=== PATIENT | female | born 1975 | race African-American/Black ===

== ENCOUNTER 2016-10-14 10:57 | Emergency (ER) | payer SELFPAY ==
[~2016-10-14] VITALS: Ht 167.6 cm; Wt 158.8 kg
[~2016-10-14 10:57] MED LIST: ALBUTEROL SULF8.5 GM INH; BENAZEPRIL HCL10 MG ORAL; HYDROCODON-ACE1 EA15 ORAL; LABETALOL HCL100 MG ORAL; METRONIDAZOLE500 MG ORAL; NITROFURANTOIN1 GM MC; NKM; NORCO 5-325 TA1 EACH ORAL; NORVASC10 MG ORAL; PRENATAL FORMU1 EAC2 PO; UNOBMED; ZITHROMAX250 MG ORAL
[2016-10-14 11:15] VITALS: BP 178/84
--- NOTE | 2016-10-14 11:50 | Diagnostic Imaging Report ---
Indication: SOB Technique: One view of the chest Comparison: 07/31/2012 Findings: Lungs and pleural spaces are clear. Heart size is upper limits normal. Better inspiration on the current study Impression: No acute process
[2016-10-14 11:52] LABS: BASOPHILS % (AUTO) 0.7 % (0.0-2.0); EOSINOPHILS % (AUTO) 3.1 % (0.0-3.0); LYMPHOCYTES % (AUTO) 37.9 % (20.0-45.0); MEAN CORPUSCULAR HEMOGLOBIN 24.6 PG (27.0-31.0); MEAN CORPUSCULAR HGB CONC 30.3 G/DL (32.0-36.0); MEAN CORPUSCULAR VOLUME 81 FL (80-99); MEAN PLATELET VOLUME 6.8 FL (6.5-10.1); MONOCYTES % (AUTO) 5.1 % (1.0-10.0); NEUTROPHILS % (AUTO) 53.2 % (45.0-75.0); PLATELET COUNT 266 K/UL (150-450); RED BLOOD COUNT 4.82 M/UL (4.20-5.40); RED CELL DISTRIBUTION WIDTH 16.2 % (11.6-14.8); WHITE BLOOD COUNT 8.7 K/UL (4.8-10.8)
[2016-10-14 11:53] LABS: APPEARANCE,URINE SLIGHTLY CLOUDY; KETONES,URINE NEGATIVE (NEGATIVE); LEUKOCYTE ESTERASE ,URINE 3+ (NEGATIVE); NITRITE,URINE NEGATIVE (NEGATIVE); PH,URINE 6 (4.5-8.0); PROTEIN,URINE NEGATIVE (NEGATIVE); UROBILINOGEN,URINE NORMAL MG/DL (0.0-1.0)
[2016-10-14 11:59] LABS: PROTHROMBIN TIME 10.9 SEC (9.30-11.50)
[2016-10-14 12:00] VITALS: BP 175/90
[2016-10-14 12:03] LABS: ALANINE AMINOTRANSFERASE 13 U/L (3-33); ALBUMIN/GLOBULIN RATIO 0.8 (1.0-2.7); ANION GAP 9 (5-15); ASPARTATE AMINO TRANSFERASE 14 U/L (5-40); BACTERIA,URINE FEW /HPF; CALCIUM 8.6 mg/dL (8.6-10.2); CARBON DIOXIDE 31 mEQ/L (20-30); CHLORIDE 99 mEQ/L (98-107); CREATININE 0.9 mg/dL (0.5-0.9); GLOMERULAR FILTRATION RATE > 60 mL/min (>60); HEMOLYSIS 1; POTASSIUM 4.2 mEQ/L (3.4-4.9); RBC,URINE 0-2 /HPF (0 - 2); SODIUM 139 mEQ/L (135-145); SQUAMOUS EPITHELIAL CELL,UR MODERATE /LPF (NONE/OCC); TOTAL PROTEIN 7.4 g/dL (6.6-8.7); TRICHOMONAS,URINE FEW /HPF; TROPONIN I < 0.30 ng/mL (<=0.30)
[2016-10-14 12:13] LABS: CKMB 2.5 ng/mL (< 3.8)
[2016-10-14 13:00] VITALS: BP 179/94
[2016-10-14 13:30] VITALS: BP 151/92
[2016-10-14] MEDS ORDERED: Acetaminophen 500mg (ES) tab ORAL ONE (13:30)
--- NOTE | 2016-10-14 13:30 | Emergency Room Report ---
History of Present Illness General Chief Complaint: Headache Source: Patient Present Illness HPI This patient states she has had an ongoing headache for the past day. She also states that she has had lower extremity edema in both of her lower extremities. She states this has been ongoing and waxes and wanes in severity. She at one point was on a blood pressure medication and this patient was taken off of this medication because her blood pressure was normal. Otherwise, she has no medical problems and is on no medications. She denies blurry vision or double vision. She denies chest pain. She states she does occasionally have shortness of breath. She denies fever or chills. She denies vomiting. She has had some nausea. She has no other complaints. Allergies: Coded Allergies: IBUPROFEN (Verified Allergy, Severe, facial edema, 07/30/12) Uncoded Allergies: contrast dye (Allergy, Severe, syncope, 07/30/12) Patient History Past Medical History: see triage record, HTN Social History: Denies: alcohol use, drug use, smoking Last Menstrual Period: a week ago Reviewed Nursing Documentation: PMH: Agreed, PSxH: Agreed Nursing Documentation-PMH Past Medical History: No History, Except For Hx Hypertension: Yes Review of Systems All Other Systems: negative except mentioned in HPI Physical Exam Vital Signs Date Time Temp Pulse Resp B/P Pulse Ox O2 Delivery O2 Flow Rate FiO2 10/14/16 11:00 98.1 73 16 164/98 94 Room Air Sp02 EP Interpretation: reviewed, normal General Appearance: no apparent distress, alert, GCS 15, non-toxic Head: normocephalic, atraumatic Eyes: bilateral eye PERRL, bilateral eye normal inspection ENT: hearing grossly normal, normal pharynx, no angioedema, normal voice Neck: full range of motion, supple/symm/no masses Respiratory: chest non-tender, lungs clear, normal breath sounds, speaking full sentences Cardiovascular #1: regular rate, rhythm, no edema Gastrointestinal: normal bowel sounds, non tender, soft, non-distended, no guarding, no rebound Rectal: deferred Musculoskeletal: back normal, gait/station normal, normal range of motion, non- tender, swelling - 2+pitting BLE edema Neurologic: alert, oriented x3, responsive, motor strength/tone normal, sensory intact, speech normal Psychiatric: judgement/insight normal, memory normal, mood/affect normal, no suicidal/homicidal ideation Skin: normal color, no rash, warm/dry, well hydrated Medical Decision Making Diagnostic Impression: Primary Impression: Headache Additional Impressions: Hypertension Lymphedema ER Course This patient presented with hypertension. The patient is very difficult to obtain of a pressure on because of her morbid obesity. There was no extra large blood pressure cuff available. Therefore, blood pressure was taken on the patient's forearm. Pulses not accurate method of measuring blood pressure. Regardless, patient also complained of ongoing headache. This by history sounded to be like a tension headache. There are no history or physical exam findings that would make me concerned for an intracranial process. Therefore, I did not obtain a CT of the head. Patient also has lymphedema the bilateral lower extremities. This appears to be peripheral edema. There is no evidence of congestive heart failure with a normal chest x-ray and BNP. The patient's laboratory workup to include CBC, CMP and cardiac enzymes are unremarkable. Overall, this patient a very benign evaluation. I have low suspicion for acute coronary syndrome or PE at this time. I will start the patient on amlodipine and hydrochlorothiazide for blood pressure. I will also give the patient Lasix for breakthrough lymphedema. Patient was educated on electrolyte depletion and increasing her potassium intake. Patient indicated understanding. Patient was also instructed to followup closely with her primary care physician. The patient's given return precautions and followup instructions. Labs Test 10/14/16 11:05 10/14/16 11:30 White Blood Count 8.7 K/UL (4.8-10.8) Red Blood Count 4.82 M/UL (4.20-5.40) Hemoglobin 11.8 G/DL (12.0-16.0) Hematocrit 39.0 % (37.0-47.0) Mean Corpuscular Volume 81 FL (80-99) Mean Corpuscular Hemoglobin 24.6 PG (27.0-31.0) Mean Corpuscular Hemoglobin Concent 30.3 G/DL (32.0-36.0) Red Cell Distribution Width 16.2 % (11.6-14.8) Platelet Count 266 K/UL (150-450) Mean Platelet Volume 6.8 FL (6.5-10.1) Neutrophils (%) (Auto) 53.2 % (45.0-75.0) Lymphocytes (%) (Auto) 37.9 % (20.0-45.0) Monocytes (%) (Auto) 5.1 % (1.0-10.0) Eosinophils (%) (Auto) 3.1 % (0.0-3.0) Basophils (%) (Auto) 0.7 % (0.0-2.0) Prothrombin Time 10.9 SEC (9.30-11.50) Prothromb Time International Ratio 1.0 (0.9-1.1) Activated Partial Thromboplast Time 32 SEC (23-33) Urine Color Yellow Urine Appearance Slightly cloudy Urine pH 6 (4.5-8.0) Urine Specific Ernul 1.020 (1.005-1.035) Urine Protein Negative (NEGATIVE) Urine Glucose (UA) Negative (NEGATIVE) Urine Ketones Negative (NEGATIVE) Urine Occult Blood Negative (NEGATIVE) Urine Nitrite Negative (NEGATIVE) Urine Bilirubin Negative (NEGATIVE) Urine Urobilinogen Normal MG/DL (0.0-1.0) Urine Leukocyte Esterase 3+ (NEGATIVE) Urine RBC 0-2 /HPF (0 - 2) Urine WBC 5-10 /HPF (0 - 2) Urine Squamous Epithelial Cells Moderate /LPF (NONE/OCC) Urine Bacteria Few /HPF (NONE) Urine Trichomonas Few /HPF (NONE) Sodium Level 139 mEQ/L (135-145) Potassium Level 4.2 mEQ/L (3.4-4.9) Chloride Level 99 mEQ/L (98-107) Carbon Dioxide Level 31 mEQ/L (20-30) Anion Gap 9 (5-15) Blood Urea Nitrogen 9 mg/dL (7-23) Creatinine 0.9 mg/dL (0.5-0.9) Estimat Glomerular Filtration Rate > 60 mL/min (>60) Glucose Level 107 mg/dL (74-106) Calcium Level 8.6 mg/dL (8.6-10.2) Total Bilirubin 0.7 mg/dL (0.0-1.2) Aspartate Amino Transf (AST/SGOT) 14 U/L (5-40) Alanine Aminotransferase (ALT/SGPT) 13 U/L (3-33) Alkaline Phosphatase 99 U/L (35-104) Total Creatine Kinase 195 U/L (26-140) Creatine Kinase MB 2.5 ng/mL (< 3.8) Creatine Kinase MB Relative Index 1.2 Troponin I < 0.30 ng/mL (<=0.30) Pro-B-Type Natriuretic Peptide 72 pg/mL (0-125) Total Protein 7.4 g/dL (6.6-8.7) Albumin 3.4 g/dL (3.5-5.2) Globulin 4.0 g/dL Albumin/Globulin Ratio 0.8 (1.0-2.7) Urine Opiates Screen Negative (NEGATIVE) Urine Barbiturates Screen Negative (NEGATIVE) Phencyclidine (PCP) Screen Negative (NEGATIVE) Urine Amphetamines Screen Negative (NEGATIVE) Urine Benzodiazepines Screen Negative (NEGATIVE) Urine Cocaine Screen Negative (NEGATIVE) Urine Marijuana (THC) Screen Negative (NEGATIVE) EKG Diagnostic Results Rate: normal Rhythm: NSR ST Segments: no acute changes Rhythm Strip Diag. Results EP Interpretation: yes Rate: 70's Rhythm: NSR, no PVC's, no ectopy Chest X-Ray Diagnostic Results Chest X-Ray Diagnostic Results : Chest X-Ray Ordered: Yes # of Views/Limited/Complete: 1 View Indication: Shortness of Breath EP Interpretation: No Interpretation: no consolidation, no effusion, no pneumothorax, no acute cardiopulmonary disease Impression: No acute disease Last Vital Signs Date Time Temp Pulse Resp B/P Pulse Ox O2 Delivery O2 Flow Rate FiO2 10/14/16 13:00 75 18 179/94 97 Room Air 10/14/16 11:00 98.1 Status: improved Disposition: HOME, SELF-CARE Condition: Improved Referrals: NON PHYSICIAN (PCP) Patient Instructions: Tension Headache SUNSHINE STILL D.O. Oct 14, 2016 13:30
[2016-10-14] MEDS ORDERED: AMLODIPINE BESY10 MG ORAL (14:27)
[2016-10-14] MEDS ORDERED: HYDROCHLOROTHIA25 MG ORAL (14:27)
[2016-10-14] MEDS ORDERED: FUROSEMIDE20 M1 ORAL (14:27)
[2016-10-14 14:30] VITALS: BP 158/102
[2016-10-14 14:58] VITALS: BP 158/102
--- NOTE | 2016-10-16 16:29 | Cardiology Report ---
APPROVED REPORT EKG Measurement Heart [id number] Normal sinus rhythm Normal ECG
== END 2016-10-14 14:58 | disposition home or self-care (01) ==
LOC: EMR 11:15
DX: R51 Headache (principal); I10 Essential (primary) hypertension; I89.0 Lymphedema, not elsewhere classified; Z88.6 Allergy status to analgesic agent; Z91.041 Radiographic dye allergy status
CPT/HCPCS: 36415; 71010; 80053; 80300; 81003; 82550; 82553; 83880; 84484; 85025; 85610; 85730; 93005; 96374; 99284; J1940

== ENCOUNTER 2017-09-05 01:47 | Emergency (ER) | payer MEDICAID ==
[~2017-09-05] VITALS: Ht 170.2 cm; Wt 158.8 kg
[~2017-09-05 01:47] MED LIST changes: +AMLODIPINE BESY10 MG ORAL; +FUROSEMIDE20 M1 ORAL; +HYDROCHLOROTHIA25 MG ORAL
[2017-09-05] MEDS ORDERED: B-12 DOTS500 MCG PO (02:05)
--- NOTE | 2017-09-05 02:10 | Emergency Room Report ---
History of Present Illness General Chief Complaint: Dizziness Source: Patient Present Illness HPI 42yo F p/w 1 day history of intermittent SOB as well as dizziness and LH, recently stopped taking BP meds, denies numbness, tingling, weakness, slurred speech, chest pain, syncope. Allergies: Coded Allergies: IBUPROFEN (Verified Allergy, Severe, facial edema, 09/05/17) Uncoded Allergies: contrast dye (Allergy, Severe, syncope, 07/30/12) Patient History Past Medical History: see triage record Reviewed Nursing Documentation: PMH: Agreed; PSxH: Agreed Nursing Documentation-PMH Hx Hypertension: Yes Review of Systems All Other Systems: negative except mentioned in HPI Physical Exam Sp02 EP Interpretation: reviewed, normal General Appearance: no apparent distress, alert, non-toxic Head: normocephalic Eyes: bilateral eye normal inspection, bilateral eye PERRL, bilateral eye EOMI ENT: normal ENT inspection, hearing grossly normal, normal pharynx, no angioedema, normal voice, moist mucus membranes Neck: normal inspection, full range of motion, supple, supple/symm/no masses Respiratory: chest non-tender, lungs clear, normal breath sounds, chest symmetrical, palpation of chest normal Cardiovascular #1: normal peripheral pulses, regular rate, rhythm Cardiovascular #2: 2+ radial (R), 2+ radial (L), 2+ dorsalis pedis (R), 2+ dorsalis pedis (L) Gastrointestinal: normal inspection, non tender, soft, no mass, no guarding, no rebound Rectal: deferred Genitourinary: normal inspection, no CVA tenderness Musculoskeletal: back normal, gait/station normal, normal range of motion, non- tender, no calf tenderness, Nahum's Sign negative Neurologic: normal inspection, alert, oriented x3, responsive, piece work inspector III-XII nml as tested, motor strength/tone normal, sensory intact, cerebellar normal, normal gait, speech normal Psychiatric: judgement/insight normal, memory normal, mood/affect normal, no suicidal/homicidal ideation Skin: normal color, no rash, warm/dry, normal turgor Lymphatic: no adenopathy Medical Decision Making Diagnostic Impression: Primary Impression: Dizziness of unknown cause Additional Impression: Shortness of breath ER Course Patient with shortness of breath and lightheadedness, no vertigo, normal neuro exam, normal exam otherwise as well other than marked obesity EKG, labs including d-dimer and proBNP also normal Chest x-ray with no acute abnormalities Patient with no chest pain no active shortness of breath, and normal blood pressure other than slightly high diastolic, Patient will ambulate without difficulty She was given aspirin, but I do not suspect atypical acute coronary syndrome She'll be discharge, diagnosis shortness of breath with no obvious etiology, and lightheadedness without focal findings I do suspect there is some component of anxiety as well as sleep apnea, and recommend she follow up with her primary care doctor EKG Diagnostic Results EKG Time: 01:54 EP Interpretation: no st-t changes, no twi's Rate: normal Rhythm: NSR ST Segments: no acute changes ASA given to the pt in ED: Yes Rhythm Strip Diag. Results Rhythm Strip Time: 02:04 EP Interpretation: yes Rate: 89 Rhythm: NSR, no PVC's, no ectopy Chest X-Ray Diagnostic Results Chest X-Ray Diagnostic Results : Chest X-Ray Ordered: Yes # of Views/Limited/Complete: 1 View Indication: Shortness of Breath EP Interpretation: Yes Interpretation: no consolidation, no effusion, no pneumothorax, no acute cardiopulmonary disease Impression: No acute disease Electronically Signed by: Kim Steward MD Disposition: HOME, SELF-CARE Condition: Stable KIM STEWARD M.D Sep 05, 2017 02:10
[2017-09-05] MEDS ORDERED: Aspirin Baby 81mg ORAL ONE (02:15)
[2017-09-05 02:50] LABS: BASOPHILS % (AUTO) 0.6 % (0.0-2.0); EOSINOPHILS % (AUTO) 2.4 % (0.0-3.0); HEMATOCRIT 39.1 % (37.0-47.0); HEMOGLOBIN 12.2 G/DL (12.0-16.0); LYMPHOCYTES % (AUTO) 34.7 % (20.0-45.0); MEAN CORPUSCULAR VOLUME 81 FL (80-99); MONOCYTES % (AUTO) 4.7 % (1.0-10.0); NEUTROPHILS % (AUTO) 57.6 % (45.0-75.0); PLATELET COUNT 282 K/UL (150-450); RED BLOOD COUNT 4.86 M/UL (4.20-5.40); RED CELL DISTRIBUTION WIDTH 15.6 % (11.6-14.8); WHITE BLOOD COUNT 10.9 K/UL (4.8-10.8)
[2017-09-05 03:00] LABS: ANION GAP 4 mmol/L (5-15); BLOOD UREA NITROGEN 12 mg/dL (7-18); CALCIUM 8.7 MG/DL (8.5-10.1); CARBON DIOXIDE 31 MMOL/L (21-32); CHLORIDE 101 MMOL/L (98-107); CREATININE 1.1 MG/DL (0.55-1.30); POTASSIUM 3.9 MMOL/L (3.5-5.1); SODIUM 136 MMOL/L (136-145)
[2017-09-05 03:06] VITALS: BP 136/94
[2017-09-05 03:13] LABS: ALANINE AMINOTRANSFERASE 22 U/L (12-78); ALBUMIN/GLOBULIN RATIO 0.6 (1.0-2.7); ALKALINE PHOSPHATASE 103 U/L (46-116); ASPARTATE AMINO TRANSFERASE 16 U/L (15-37); BILIRUBIN,TOTAL 0.7 MG/DL (0.2-1.0)
[2017-09-05] MEDS ORDERED: MECLIZINE HCL25 MG ORAL (04:24)
[2017-09-05 04:36] VITALS: BP 136/82
[2017-09-05 04:43] VITALS: BP 136/82
--- NOTE | 2017-09-05 09:44 | Diagnostic Imaging Report ---
Indication: Shortness of breath Technique: One view of the chest Comparison: 10/14/2016 Findings: Lungs and pleural spaces are clear. Heart size is upper limits normal. No significant change Impression: No acute process
--- NOTE | 2017-09-05 14:56 | Cardiology Report ---
APPROVED REPORT EKG Measurement Heart [id number] Normal sinus rhythm Possible Left atrial enlargement Borderline ECG
== END 2017-09-05 04:43 | disposition home or self-care (01) ==
LOC: EMR 02:18
DX: R42 Dizziness and giddiness (principal); R06.02 Shortness of breath; I10 Essential (primary) hypertension; Z88.6 Allergy status to analgesic agent
CPT/HCPCS: 36415; 71045; 80053; 83880; 84484; 85025; 85379; 93005; 99283

== ENCOUNTER 2018-02-09 18:10 | Emergency (ER) | payer SELFPAY ==
[~2018-02-09] VITALS: Ht 167.6 cm; Wt 158.8 kg
[~2018-02-09 18:10] MED LIST changes: +B-12 DOTS500 MCG PO; +MECLIZINE HCL25 MG ORAL
[2018-02-09 18:28] VITALS: BP 155/91
[2018-02-09] MEDS ORDERED: Ipratropium 0.02% Inh Soln 2.5ml UD HHN ONE (18:45)
[2018-02-09] MEDS ORDERED: Albuterol ud Inhalation HHN ONE (18:45)
[2018-02-09] MEDS ORDERED: SINUS CONGESTI PO (19:32)
[2018-02-09 19:40] LABS: ANION GAP 7 mmol/L (5-15); BLOOD UREA NITROGEN 16 mg/dL (7-18); CALCIUM 8.8 MG/DL (8.5-10.1); CARBON DIOXIDE 30 MMOL/L (21-32); CHLORIDE 101 MMOL/L (98-107); CREATININE 0.9 MG/DL (0.55-1.30); POTASSIUM 4.9 MMOL/L (3.5-5.1); SODIUM 138 MMOL/L (136-145)
[2018-02-09 19:50] LABS: ALANINE AMINOTRANSFERASE 20 U/L (12-78); ALBUMIN/GLOBULIN RATIO 0.5 (1.0-2.7); ALKALINE PHOSPHATASE 121 U/L (46-116); ASPARTATE AMINO TRANSFERASE 33 U/L (15-37); BILIRUBIN,TOTAL 0.7 MG/DL (0.2-1.0)
[2018-02-09 19:54] LABS: BASOPHILS % (AUTO) 0.6 % (0.0-2.0); EOSINOPHILS % (AUTO) 3.9 % (0.0-3.0); HEMATOCRIT 42.4 % (37.0-47.0); HEMOGLOBIN 12.8 G/DL (12.0-16.0); LYMPHOCYTES % (AUTO) 37.4 % (20.0-45.0); MEAN CORPUSCULAR VOLUME 79 FL (80-99); MONOCYTES % (AUTO) 4.8 % (1.0-10.0); NEUTROPHILS % (AUTO) 53.3 % (45.0-75.0); PLATELET COUNT 296 K/UL (150-450); RED BLOOD COUNT 5.39 M/UL (4.20-5.40); WHITE BLOOD COUNT 13.7 K/UL (4.8-10.8)
[2018-02-09] MEDS ORDERED: PREDNISONE20 MG ORAL (20:30)
[2018-02-09] MEDS ORDERED: PROMETHAZINE-C118 M1 ORAL (20:30)
[2018-02-09] MEDS ORDERED: AMOXICILLIN500 MG ORAL (20:30)
[2018-02-09] MEDS ORDERED: ALBUTEROL SULF8.5 GM INH (20:30)
[2018-02-09 20:54] VITALS: BP 151/92
--- NOTE | 2018-02-09 23:06 | Emergency Room Report ---
History of Present Illness General Chief Complaint: Upper Respiratory Illness Source: Patient Present Illness HPI 42-year-old female presents ED for evaluation. States she's been complaining of shortness of breath 1 day. Notes cough which is productive. Denies chest pain. Denies fevers or chills. Denies sick contacts or recent travel. No other aggravating relieving factors. Denies any other associated symptoms Allergies: Coded Allergies: IBUPROFEN (Verified Allergy, Severe, facial edema, 09/05/17) Uncoded Allergies: contrast dye (Allergy, Severe, syncope, 07/30/12) Patient History Past Medical History: HTN Past Surgical History: none Pertinent Family History: none Social History: Denies: smoking, alcohol use, drug use Last Menstrual Period: September, irregular last four years. Now: No Immunizations: UTD Reviewed Nursing Documentation: PMH: Agreed; PSxH: Agreed Nursing Documentation-PMH Hx Hypertension: Yes Review of Systems All Other Systems: negative except mentioned in HPI Physical Exam Vital Signs Date Time Temp Pulse Resp B/P (MAP) Pulse Ox O2 Delivery O2 Flow Rate FiO2 02/09/18 18:12 98.2 80 20 185/101 96 Room Air 02/09/18 18:28 100 Sp02 EP Interpretation: reviewed, normal General Appearance: no apparent distress, alert, GCS 15, non-toxic, obese Head: normocephalic, atraumatic Eyes: bilateral eye normal inspection, bilateral eye PERRL ENT: hearing grossly normal, normal pharynx, no angioedema, normal voice Neck: full range of motion, supple/symm/no masses Respiratory: chest non-tender, normal breath sounds, decreased breath sounds, speaking full sentences Cardiovascular #1: regular rate, rhythm, no edema Cardiovascular #2: 2+ carotid (R), 2+ carotid (L), 2+ radial (R), 2+ radial (L) , 2+ dorsalis pedis (R), 2+ dorsalis pedis (L) Gastrointestinal: normal bowel sounds, non tender, soft, non-distended, no guarding, no rebound Rectal: deferred Genitourinary: normal inspection, no CVA tenderness Musculoskeletal: back normal, gait/station normal, normal range of motion, non- tender Neurologic: alert, oriented x3, responsive, motor strength/tone normal, sensory intact, speech normal Psychiatric: judgement/insight normal, memory normal, mood/affect normal, no suicidal/homicidal ideation Reflexes: 3+ bicep (R), 3+ bicep (L), 3+ tricep (R), 3+ tricep (L), 3+ knee (R) , 3+ knee (L) Skin: normal color, no rash, warm/dry, well hydrated Lymphatic: no adenopathy Medical Decision Making Diagnostic Impression: Primary Impression: Atypical pneumonia ER Course Hospital Course 42 yo F presents to ED c/o cough, SOB Differential diagnoses include: URI, bronchitis, asthma/COPD, pneumonia Clinical course Patient placed on stretcher. After initial history, physical exam reveals an obese female in no acute distress. Bilateral TM unremarkable. No pharyngeal erythema. No tonsillar exudates. No lymphadenopathy. reduced breath sounds bilaterally I ordered labs, IV fluids, nebs, chest x-ray. Labs reviewed-leukocytosis noted, hemoglobin/hematocrit stable, electrolytes okay EKG - NSR, no acute ischemic changes interpereted by me Chest x-ray shows possible infiltrate On reassessment patient states she feels better after breathing treatments. Per curb-65 criteria, patient does not require admission. Patient can be safely discharged to home with outpatient therapy. Patient agrees with plan. Diagnosis - atypical pneumonia Stable and discharged home with prescriptions for albuterol, prednisone, promethazine/codeine, amoxicillin. Instructed to followup with PMD. Return to ED if symptoms recur or worsen Labs Test 02/09/18 18:45 02/09/18 18:54 White Blood Count 13.7 K/UL (4.8-10.8) Red Blood Count 5.39 M/UL (4.20-5.40) Hemoglobin 12.8 G/DL (12.0-16.0) Hematocrit 42.4 % (37.0-47.0) Mean Corpuscular Volume 79 FL (80-99) Mean Corpuscular Hemoglobin 23.8 PG (27.0-31.0) Mean Corpuscular Hemoglobin Concent 30.2 G/DL (32.0-36.0) Red Cell Distribution Width 15.0 % (11.6-14.8) Platelet Count 296 K/UL (150-450) Mean Platelet Volume 6.6 FL (6.5-10.1) Neutrophils (%) (Auto) 53.3 % (45.0-75.0) Lymphocytes (%) (Auto) 37.4 % (20.0-45.0) Monocytes (%) (Auto) 4.8 % (1.0-10.0) Eosinophils (%) (Auto) 3.9 % (0.0-3.0) Basophils (%) (Auto) 0.6 % (0.0-2.0) Sodium Level 138 MMOL/L (136-145) Potassium Level 4.9 MMOL/L (3.5-5.1) Chloride Level 101 MMOL/L (98-107) Carbon Dioxide Level 30 MMOL/L (21-32) Anion Gap 7 mmol/L (5-15) Blood Urea Nitrogen 16 mg/dL (7-18) Creatinine 0.9 MG/DL (0.55-1.30) Estimat Glomerular Filtration Rate > 60 mL/min (>60) Glucose Level 102 MG/DL (74-106) Calcium Level 8.8 MG/DL (8.5-10.1) Total Bilirubin 0.7 MG/DL (0.2-1.0) Aspartate Amino Transf (AST/SGOT) 33 U/L (15-37) Alanine Aminotransferase (ALT/SGPT) 20 U/L (12-78) Alkaline Phosphatase 121 U/L (46-116) Troponin I 0.000 ng/mL (0.000-0.056) Total Protein 9.3 G/DL (6.4-8.2) Albumin 3.0 G/DL (3.4-5.0) Globulin 6.3 g/dL Albumin/Globulin Ratio 0.5 (1.0-2.7) EKG Diagnostic Results Rate: normal Rhythm: NSR ST Segments: no acute changes ASA given to the pt in ED: No Rhythm Strip Diag. Results EP Interpretation: yes Rhythm: NSR, no PVC's, no ectopy Chest X-Ray Diagnostic Results Chest X-Ray Diagnostic Results : Chest X-Ray Ordered: Yes # of Views/Limited/Complete: 1 View Indication: Shortness of Breath EP Interpretation: Yes Interpretation: no pneumothorax, other - haziness LLL Impression: Other - ??PNA Electronically Signed by: Electronically signed by Alistair Allen MD Last Vital Signs Date Time Temp Pulse Resp B/P (MAP) Pulse Ox O2 Delivery O2 Flow Rate FiO2 11/26/18 20:54 97.4 85 20 151/92 100 Room Air 21 Status: improved Disposition: HOME, SELF-CARE Condition: Stable Scripts Prednisone* (PREDNISONE*) 20 Mg Tablet 40 MG ORAL DAILY, #10 TAB Prov: Alistair Allen MD 02/09/18 Albuterol Sulfate* (ALBUTEROL SULFATE MDI*) 8.5 Gm Hfa.aer.ad 2 PUFF INH Q6H, #1 EA 0 Refills Prov: Alistair Allen MD 02/09/18 Codeine/Promethazine Hcl* (PROMETHAZINE-CODEINE SYRUP*) 118 Ml Syrup 5 ML ORAL Q6H PRN for For Cough, #118 ML 0 Refills Prov: Alistair Allen MD 02/09/18 Amoxicillin* (AMOXIL*) 500 Mg Capsule 500 MG ORAL THREE TIMES A DAY, #21 CAP Prov: Alistair Allen MD 02/09/18 Patient Instructions: Community-Acquired Pneumonia, Adult, [id number] Alistair Allen MD Feb 09, 2018 23:06
--- NOTE | 2018-02-10 11:40 | Diagnostic Imaging Report ---
Indication: Shortness of breath Technique: One view of the chest Comparison: 09/05/2017 Findings: Body habitus limits evaluation. The heart is enlarged. There is equivocal minimal interstitial congestion and central bronchial wall thickening. No effusions. No focal airspace consolidation. Impression: Cardiomegaly Equivocal minimal interstitial congestion and central bronchial wall thickening. Correlate with clinical finding Negative for infiltrate
--- NOTE | 2018-02-11 17:56 | Cardiology Report ---
APPROVED REPORT EKG Measurement Heart [id number] [place] [id number] [id number] Normal sinus rhythm Normal ECG
== END 2018-02-09 20:54 | disposition home or self-care (01) ==
LOC: EMR 18:25
DX: J18.8 Other pneumonia, unspecified organism (principal); I10 Essential (primary) hypertension; R06.02 Shortness of breath
CPT/HCPCS: 36415; 71045; 80053; 84484; 85025; 93005; 94640; 94664; 99284